=== PATIENT | male | born 1975 | race Hispanic/Latino ===

== ENCOUNTER 2018-03-22 08:20 | Emergency (ER) | payer SELFPAY ==
[2018-03-22 09:40] LABS: #Basophils 0.1 thou/uL (0.0-0.2); #Eosinphils 0.4 thou/uL (0.0-0.7); #Lymphocytes 1.8 thou/uL (1.20-3.40); #Monocytes 0.6 thou/uL (0.11-0.59); #Neutrophils 4.1 thou/uL (1.40-6.50); %Basophils 1.5 % (0.0-1.0); %Eosinophils 5.3 % (0.0-10.0); %Lymphocytes 25.5 % (21.0-51.0); %Monocytes 9.1 % (0.0-10.0); %Neutrophils 58.5 % (42.0-75.0); Hemoglobin 15.5 g/dL (14.0-18.0); Mean Corpuscular HGB CONC 34.5 g/dL (32.0-36.0); Mean Corpuscular Hemoglobin 27.7 pg (27.0-31.0); Mean Corpuscular Volume 80.3 fL (78.0-98.0); Mean Platelet Volume 10.4 fL (7.4-10.4); Platelet Count 209 thou/uL (130-400); Red Blood Cell (RBC) Count 5.59 mill/uL (4.70-6.10)
[2018-03-22 09:49] LABS: ALT (SGPT) 31 U/L (8-55); AST (SGOT) 21 U/L (5-34); Albumin 3.7 g/dL (3.5-5.0); Alkaline Phosphatase 143 U/L (40-150); Anion Gap 10 mmol/L (10-20); BUN (Urea Nitrogen) 11 mg/dL (8.9-20.6); Bilirubin, Total 0.6 mg/dL (0.2-1.2); Calc. Creatinine Clearance 0 mL/min (70-130); Carbon Dioxide 21 mmol/L (22-29); Chloride 112 mmol/L (98-107); Estimated GFR-MDRD Greater than 90; Globulin 2.2 g/dL (2.4-3.5); Glucose 116 mg/dL (70-105); Protein, Total 5.9 g/dL (6.0-8.3); Sodium 140 mmol/L (136-145)
[2018-03-22 10:00] LABS: Potassium 2.6 mmol/L (3.5-5.1)
[2018-03-22] MEDS ORDERED: Potassium Chloride 20 MEQ TAB ONE (10:27)
== END 2018-03-22 11:25 | disposition home or self-care (01) ==
LOC: MADERS 08:20
DX: E87.6 Hypokalemia (principal)
CPT/HCPCS: 36415; 80053; 83735; 85025; 93005

== ENCOUNTER 2018-03-24 15:28 | Emergency (ER) | payer SELFPAY ==
[~2018-03-24 15:28] MED LIST: Sodium Chloride 0.9% 1,000 ML BAG ONE
--- NOTE | 2018-03-24 16:15 | RAD ---
AP CHEST: Indication: Weakness. Comparison: None. FINDINGS: Lungs are clear. Heart size is accentuated by exam technique. No acute osseous abnormality is evident . IMPRESSION: No acute abnormality. POS: [facility]
[2018-03-24 16:23] LABS: #Basophils 0.1 thou/uL (0.0-0.2); #Lymphocytes 1.1 thou/uL (1.20-3.40); #Monocytes 0.5 thou/uL (0.11-0.59); #Neutrophils 7.7 thou/uL (1.40-6.50); %Basophils 0.9 % (0.0-1.0); %Eosinophils 0.1 % (0.0-10.0); %Lymphocytes 11.6 % (21.0-51.0); %Monocytes 5.1 % (0.0-10.0); %Neutrophils 82.3 % (42.0-75.0); Hemoglobin 15.7 g/dL (14.0-18.0); Mean Corpuscular HGB CONC 34.3 g/dL (32.0-36.0); Mean Corpuscular Hemoglobin 27.8 pg (27.0-31.0); Mean Corpuscular Volume 81.1 fL (78.0-98.0); Platelet Count 248 thou/uL (130-400); RBC Distribution Width 11.9 % (11.5-14.5); Red Blood Cell (RBC) Count 5.63 mill/uL (4.70-6.10); White Blood Cell (WBC) Count 9.3 thou/uL (4.8-10.8)
[2018-03-24 16:39] LABS: ALT (SGPT) 41 U/L (8-55); AST (SGOT) 27 U/L (5-34); Albumin 3.9 g/dL (3.5-5.0); Alkaline Phosphatase 143 U/L (40-150); Anion Gap 8 mmol/L (10-20); BUN (Urea Nitrogen) 10 mg/dL (8.9-20.6); Bilirubin, Total 0.4 mg/dL (0.2-1.2); Calc. Creatinine Clearance 0 mL/min (70-130); Calcium 8.8 mg/dL (7.8-10.44); Carbon Dioxide 22 mmol/L (22-29); Chloride 111 mmol/L (98-107); Estimated GFR-MDRD Greater than 90; Globulin 3.1 g/dL (2.4-3.5); Glucose 213 mg/dL (70-105); Sodium 139 mmol/L (136-145)
[2018-03-24 16:40] LABS: CKMB 3.3 ng/mL (0-6.6)
[2018-03-24 16:43] LABS: Phosphorus 1.5 mg/dL (2.3-4.7); Potassium 2.3 mmol/L (3.5-5.1)
[2018-03-24 16:52] LABS: Bilirubin Negative (Negative); Blood, Urine Trace (Negative); Glucose, Urine (Dipstick) >=1000 mg/dL (Negative); Leukocyte Negative (Negative); Nitrite Negative (Negative); Protein, Urine (Dipstick) Negative (Neg-Trace); Specific Gravity, Urine 1.015 (1.005-1.030); Urobilinogen 0.2 mg/dL (0.2-1.0); pH, Urine 6.5 (5.0-9.0)
[2018-03-24] MEDS ORDERED: Potassium Chloride 10 MEQ TAB ONE (17:00)
[2018-03-24 17:02] LABS: Clarity Hazy (Clear)
[2018-03-24 17:03] LABS: Amphetamine Not Detected (NotDetected); Bacteria/HPF Rare-Few HPF (None Seen); Barbiturates Screen Not Detected (NotDetected); Benzodiazepine Screen Not Detected (NotDetected); Cocaine Metabolite Screen Not Detected (NotDetected); Medtox Control Line Valid? VALID (VALID); Methadone Not Detected (NotDetected); Methamphetamine Not Detected (NotDetected); Opiate Screen Not Detected (NotDetected); Oxycodone Screen Not Detected (NotDetected); Phencyclidine (PCP) Not Detected (NotDetected); RBC/HPF 0-3 HPF (0-3); Squamous Epithelial 0-3 HPF (0-3); THC/Cannabinoid Screen Not Detected (NotDetected); Tricyclic Screen Not Detected (NotDetected); WBC/HPF None Seen HPF (0-3)
[2018-03-24] MEDS ORDERED: Potassium Chloride 20 MEQ/100 ML PREMIX BAG ONE (17:19)
[2018-03-24] MEDS ORDERED: Midazolam HCl 10 mg/2 ml Vial ONE (17:24)
[2018-03-24] MEDS ORDERED: Ibuprofen 100 MG/5 ML UDCUP ONE (17:24)
[2018-03-24] MEDS ORDERED: NS 0.9% w/ 40 MEQ KCL 1,000 ML IV ONE (17:26)
== END 2018-03-24 18:05 | disposition short-term general hospital (02) ==
LOC: MADERS 15:28
DX: E87.6 Hypokalemia (principal); E83.39 Other disorders of phosphorus metabolism
CPT/HCPCS: 71045; 80053; 80306; 81003; 81015; 82553; 83735; 84100; 84484; 85025; 93005; 94760; 96361; 96365; J2250; J3480; J7050